=== PATIENT | female | born 1980 | race Caucasian/White ===

== ENCOUNTER 2021-01-05 14:28 | Emergency (ER) | payer OTHER, SELFPAY ==
[2021-01-05 15:20] VITALS: BP 141/91; PULSE 78; RESP 18; TEMP 36.6; O2SAT 98; BMI 20.7
--- NOTE | 2021-01-05 16:05 | ED_ITS ---
HPI - Ear Problem General Chief complaint: Ear Problems Stated complaint: ear infection Time Seen by Provider: 01/05/21 15:55 Source: patient Mode of arrival: ambulatory Limitations: no limitations History of Present Illness MD Complaint: ear pain, ear discharge and decreased hearing Location: bilateral Duration: constant Severity: severe Relieving factors: nothing Exacerbating factors: palpation Discharge from ear: yes - clear Associated symptoms ear: decreased hearing, external ear tenderness, ear swelling and neck pain Treatment prior to arrival: eardrops (Currently on polymyxin ear drops and no symptomatic relief for the past 4 days) Related Data Previous Rx's Medication Instructions Recorded acetaminophen 300 mg-codeine 30 mg 1 tab PO Q8H PRN #14 tab 01/05/21 tablet amoxicillin 875 mg-potassium 1 tab PO BID 10 Days #20 tab 01/05/21 clavulanate 125 mg tablet (Augmentin) ciprofloxacin 0.3 %-dexamethasone 4 drp OTIC (EARS) BID 7 Days ml 01/05/21 0.1 % ear drops,suspension (Ciprodex) Allergies Allergy/AdvReac Type Severity Reaction Status Date / Time clarithromycin [From Biaxin] Allergy Mild UNKNOWN Verified 01/05/21 15:24 Review of Systems Review of Systems: Constitutional : No Weight loss, No Fever, No Chills, No Night Sweats, No Fatigue, No Malaise ENT/Mouth : Positive bilateral ear pain with decreased hearing and discharge, No Nasal Congestion, No Sinus Pain, No Hoarseness, No sore throat, No Rhinorrhea, No Swallowing Difficulty Eyes: No Eye Pain, No Swelling, No Redness, No Foreign Body, No Discharge, No Vision Changes Cardiovascular : No Chest Pain, No SOB, No Dyspnea on Exertion, No Orthopnea, No Edema, No Palpitations Respiratory : No Cough, No Sputum, No Wheezing, No Smoke Exposure, No Dyspnea Gastrointestinal : No Nausea, No Vomiting, No Diarrhea, No Constipation, No abdominal Pain, No Hematochezia, No Melena Genitourinary : no irregular bleeding, No Dysuria, No Urinary Frequency, No Hematuria, No Urinary Incontinence, No Urgency, No Flank Pain, No Urinary Flow Changes, No Hesitancy Musculoskeletal : No joint pain, No Myalgias, No Joint Swelling Skin : No Skin Lesions, No rash Neuro : No Weakness, No Numbness, No Paresthesias, No Loss of Consciousness, No Dizziness, No Headache Psych : No Anxiety/Panic, No Depression, No SI/HI/AH/VH, No Social Issues, Heme/Lymph: No Bruising, No Bleeding,No Lymphadenopathy Endocrine : No Polyuria, No Polydipsia, No Temperature Intolerance Yes all other systems are reviewed and are negative [facility] Past Medical History Attestation statement: The following information was validated with the patient. Medical History No known health problems Social History Social History Advance Directives: No Advance Directives Information Provided: Yes Physical Exam Vital Signs: Vital Signs: Last Vital Signs Temp 97.9 F 01/05/21 15:20 Pulse 78 01/05/21 15:20 Resp 18 01/05/21 15:20 BP 141/91 H 01/05/21 15:20 Pulse Ox 98 01/05/21 15:20 Body Mass Index 20.7 vital signs have been reviewed as normal and appeared to be correct. Blood pressure normal. Heart rate normal. Respiration rate normal. Temperature normal. Oxygen saturation normal. Appearance: Alert. Oriented X3. No acute distress. Head: Normal external exam. Normocephalic. Atraumatic. Eyes: PERRLA. EOMI. Conjunctiva and sclera normal. Eyelids normal. ENT: To left ear canal patient has moderate tender to palpation to the tragus/pinna and edematous to the external ear canal unable to visualize the tympanic membrane. Right external ear canal is open. No signs of infection. Right TM's Normal. Pharynx normal. Uvula midline. Moist mucous membranes. Neck: Normal inspection. Neck supple. FROM. No adenopathy. Thyroid Normal. No meningeal signs. No neck mass noted. CVS: Normal heart rate and rhythm. Abdomen: Soft and nontender. Bowel sounds normal in all 4 quadrants. No distention noted. No organomegaly noted. No visible injury noted. Back: Full range of motion noted. No rashes/lesion/induration/fluctuance or signs of infection noted. Skin: Skin warm and dry. Normal skin color. Normal skin turgor. No rashes/lesions/lacerations noted. Extremities: Extremities exhibit normal range of motion. Extremities nontender. Neuro: Oriented X 3. No motor deficit. No sensory deficit. Reflexes normal. Normal steady gait. No focal neuro deficits noted. Vascular: + radial pulses Normal cap refill. No cyanosis noted to upper extremity nails Course Course Course Narrative: 40-year-old female presenting to the ED with complaints of bilateral ear pain with decreased hearing and discharge worse on the left than the right has currently been on polymyxin antibiotic ear drops for the past 4 days although she feels like the drops are not actually getting into the left ear although they are actually getting into the right ear. She denies any other symptoms complaints or concerns. On exam she is noted to have bilateral otitis externa an eye unable to see the tympanic membrane to the left ear there for a ear wick was placed and drops were placed will DC home with antibiotics and symptomatic treatment instructions return if any new or worsening symptoms to follow up with Dr. Bauman ear nose and throat doctor. Patient understands agrees with this plan. MDM - Ear Medical Records Attestation: I reviewed the patient's medical records. Discharge Plan Discharge Clinical Impression: Otitis externa, Otitis media Patient Disposition: Home, Self-Care Instructions: Otitis Externa (ED), How to Use Ear Drops (ED), Ear Infection (ED) Prescriptions: New acetaminophen-codeine 300-30 mg tablet 1 tab PO Q8H PRN (Reason: pain) Qty: 14 RF: 0 amoxicillin-pot clavulanate [Augmentin] 875-125 mg tablet 1 tab PO BID 10 Days Qty: 20 RF: 0 ciprofloxacin-dexamethasone [Ciprodex] 0.3-0.1 % drops,suspension 4 drp otic (ears) BID 7 Days RF: 0 Referrals: Chase Bauman [Physician] - 2 days (Call to make a follow-up appointment within a week) Stand Alone Forms: Work/School Release Print Language: Malay
== END 2021-01-05 16:18 | disposition home or self-care (01) ==
PROVIDERS: Emergency Provider Emergency Medicine
DX: H60.93 Unspecified otitis externa, bilateral (principal); H66.93 Otitis media, unspecified, bilateral; Z79.899 Other long term (current) drug therapy
CPT/HCPCS: 99283; 99284

== ENCOUNTER 2023-07-20 11:47 | Emergency (ER) | payer OTHER, SELFPAY ==
--- NOTE | 2023-07-20 | ECG_ITS ---
Test Reason : CP Blood Pressure : / mmHG Vent. Rate : 078 BPM Atrial Rate : 078 BPM P-R Int : 128 ms QRS Dur : 072 ms QT Int : 380 ms P-R-T Axes : 060 049 031 degrees QTc Int : 433 ms Normal sinus rhythm Possible Left atrial enlargement Borderline ECG No previous ECGs available Referred By: Generic ED Physician Electronically Signed By:Zach Mejia
--- NOTE | ~2023-07-20 | CT_ITS ---
EXAMINATION: CT ANGIOGRAM CHEST CLINICAL INFORMATION: Chest pain radiating to back COMPARISON: Previous chest x-ray March 2011 TECHNIQUE: Multiple axial images were obtained through the chest after the administration of 70 mL of Omnipaque 350 intravenous contrast. Extensive vascular post-processing including two-dimensional and three-dimensional reformatted images were created and reviewed on an independent workstation. This CT examination was performed using dose optimization techniques as appropriate, variously including the following: *Automated exposure control *Adjustment of mA and/or kV according to patient size (this includes techniques or standardized protocols for targeted exams where dose is matched to indication/reason for exam; i.e. extremities or head) *Use of iterative reconstruction technique DLP: 227 mGy-cm FINDINGS: Thoracic aorta is normal in caliber. No aneurysm or dissection. Great vessel origins are patent. Normal heart size. No pericardial effusion. No pulmonary embolism. No lymphadenopathy. Lungs are clear. No pleural effusion pleural thickening or pneumothorax. Bilateral breast implants. Low attenuation in the body of the pancreas. This may represent unopacified splenic vein. Images through the upper abdomen are otherwise unremarkable CT/CT angio chest aorta IMPRESSION: Normal caliber thoracic aorta. No evidence of aneurysm or dissection. Fleischner guidelines were followed.
[2023-07-20 12:02] LABS: MANUAL DIFF FLAG NO
[2023-07-20 12:04] LABS: Basophils Absolute Auto 0.1 X10*3/uL (0.0-0.2); Basophils Percent Auto 1.7 % (0-2); Eosinophils Absolute Auto 0.1 X10*3/uL (0.0-0.4); Eosinophils Percent Auto 2.5 % (0-4); Hematocrit 43.5 % (37.0-47.0); Imm Gran Abs Auto 0.01 X10*3/uL (0.00-0.03); Imm Gran Pct Auto 0.2 % (0.0-0.4); Lymphocytes Absolute Auto 1.2 X10*3/uL (1.2-4.9); Lymphocytes Percent Auto 23.4 % (20-40); Mean Corpuscular HGB Conc 34.5 g/dl (31.0-35.0); Mean Corpuscular Hemoglobin 30.5 pg (27.0-33.0); Mean Corpuscular Volume 88.4 fL (80.0-98.0); Mean Platelet Volume 10.8 fL (9.4-12.3); Monocytes Absolute Auto 0.4 X10*3/uL (0.1-1.2); Monocytes Percent Auto 7.8 % (2-11); Neutrophils Absolute Auto 3.4 x10*3/uL (2.0-8.3); Neutrophils Percent Auto 64.4 % (45-73); Platelet Count 279 X10*3/uL (160-400); Red Blood Count 4.92 X10*6/uL (4.20-5.50); Red Cell Distribution Width 12.8 % (11.0-16.0); White Blood Count 5.3 X10*3/uL (4.8-10.8)
--- NOTE | 2023-07-20 12:25 | ED.GENADULT ---
HPI - General Adult General Chief complaint: Chest Pain Stated complaint: Chest Pain Time Seen by Provider: 07/20/23 12:40 Source: patient and old records reviewed Mode of arrival: ambulatory Limitations: no limitations History of Present Illness HPI narrative: 43 yo female no sig PMH here with c/o chest pain that is going to her back now with dizziness it has been increasing. No prior CAD no issues with heart or vessels. No travel, URI, vaccines, on OCPs. She denies any recent trauma to the chest. MD complaint: chest pain Onset (ago): day(s) (5) Location: chest Radiation: back Severity: moderate Quality: stabbing and aching Pain Consistency: intermittent Relieving factors: none Exacerbating factors: none Associated symptoms: weakness and other (feels lightheaded) Treatments prior to arrival: none Related Data Previous Rx's ?Medication ?Instructions ?Recorded acetaminophen 300 mg-codeine 30 mg 1 tab PO Q8H PRN pain #14 tabs 01/05/21 tablet amoxicillin 875 mg-potassium 1 tab PO BID 10 days #20 tabs 01/05/21 clavulanate 125 mg tablet (Augmentin) ciprofloxacin 0.3 %-dexamethasone 4 drp otic (ears) BID 7 days 01/05/21 0.1 % ear drops,suspension (Ciprodex) Allergies Allergy/AdvReac Type Severity Reaction Status Date / Time clarithromycin [From Biaxin] Allergy Mild UNKNOWN Verified 07/20/23 12:28 Review of Systems Review of Systems: Constitutional : No Weight loss, No Fever, No Chills ENT/Mouth : No sore throat, No Rhinorrhea Eyes: No Eye Pain, No Swelling Cardiovascular : pos Chest Pain, no SOB, no Dyspnea on Exertion, No Orthopnea, No Edema, No Palpitations Respiratory : No Cough, No Sputum Gastrointestinal : no Nausea, No Vomiting, No Diarrhea, No abdominal Pain, No Hematochezia, No Melena Genitourinary : No Dysuria, No Urinary Frequency Musculoskeletal : No joint pain, No Myalgias, No Joint Swelling Skin : No Skin Lesions, No rash Neuro : No Weakness, No Numbness, pos Dizziness, No Headache Psych : No Anxiety/Panic, No Depression All other systems reviewed and are negative PMFSH Past Medical History Medical History No known health problems Social History Social History (System 01/07/23 @ 12:55 by Sherry Khanna) Advance Directives: No Advance Directives Information Provided: Yes Do you have a plan to hurt others: No Plan Physical Exam ED Vital Signs: Vital Signs - 24 hr 07/20/23 12:26 Temperature 98 F Pulse Rate 89 Respiratory Rate 19 Blood Pressure 134/91 H Pulse Oximetry 98 Oxygen Delivery Method Room Air BMI result Body Mass Index 21.5 Appearance: Alert. Oriented X3. No acute distress. anxious Eyes: Pupils equal, round and reactive to light. ENT: Pharynx normal. Neck: Normal inspection. Neck supple. CVS: Normal heart rate and rhythm. decreased pulses to R foot both DP/PT Respiratory: No respiratory distress. Breath sounds normal. Abdomen: Soft and nontender. Skin: Skin warm and dry. Normal skin color. Normal skin turgor. Extremities: No lower extremity edema. No calf ttp Neuro: Oriented X 3. No motor deficit. No sensory deficit. Course Course Course Narrative: This is an RME performed by Sj Mora CNP: Additional HPI, ROS, PE not included below will be deferred to primary provider. Patient is a 43-year-old female who presents emergency department for evaluation of intermittent chest pain, described as pressure and tightness, shortness of breath, difficulty breathing over past week. Episodes typically last approximately 1 hour, however has been present since awaking this morning approximately 4 hours ago and felt worse today. History of DVT/PE/ malignancy, recent lower extremity swelling pain or redness, no OCP. Plan: Labs, EKG Medications Administered Discontinued Medications Generic Name Dose Route Start Last Admin Trade Name Kelly PRN Reason Stop Dose Admin Sodium Chloride 1,000 mls @ 999 mls/hr 07/20/23 13:07 07/20/23 14:43 Ns IV 07/20/23 14:07 Infused .Q1H1M ONE Infusion Iohexol 100 ml 07/20/23 13:28 07/20/23 13:28 Iohexol 350 Mg/Ml 100 Ml Infus..Btl IV 07/20/23 13:29 70 ml ONCE ONE Administration Medical Decision Making Medical Decision Making MDM Narrative: 43 yo female no sig PMH here with atypical on and off chest pain for 5 days but now with chest pain to the back she is anxious and on exam I do have different pulses exam R leg from L leg at this no risk factors for dissection and no fam hx but given presentation I am ordered CTA of the chest, troponin x 1 and EKG. Differential Diagnosis Differential Diagnoses: The differential diagnosis associated with the presentation includes atypical chest pain, dehydration, dissection no risk factors other than dad at age 75 with ACS Admission/Observation Consideration of admission/observation: Escalation of care including admission/observation considered normal EKF, no PE, dissection trop negative Lab Data [facility] Lab Attestation statement: I reviewed the patient's lab results. 07/20/23 11:57 07/20/23 11:57 Labs: Lab Results 07/20/23 Range/Units 11:57 WBC 5.3 (4.8-10.8) X10*3/uL RBC 4.92 (4.20-5.50) X10*6/uL Hgb 15.0 (12.0-16.0) g/dl Hct 43.5 (37.0-47.0) % MCV 88.4 (80.0-98.0) fL MCH 30.5 (27.0-33.0) pg MCHC 34.5 (31.0-35.0) g/dl RDW 12.8 (11.0-16.0) % Plt Count 279 (160-400) X10*3/uL MPV 10.8 (9.4-12.3) fL Immature Gran % (Auto) 0.2 (0.0-0.4) % Neut % (Auto) 64.4 (45-73) % Lymph % (Auto) 23.4 (20-40) % [place] % (Auto) 7.8 (2-11) % Eos % (Auto) 2.5 (0-4) % Baso % (Auto) 1.7 (0-2) % Lymph # (Auto) 1.2 (1.2-4.9) X10*3/uL [place] # (Auto) 0.4 (0.1-1.2) X10*3/uL Eos # (Auto) 0.1 (0.0-0.4) X10*3/uL Baso # (Auto) 0.1 (0.0-0.2) X10*3/uL Abs Immat Gran (auto) 0.01 (0.00-0.03) X10*3/uL Absolute Neuts (auto) 3.4 (2.0-8.3) x10*3/uL Absolute Nucleated RBC 0.000 (0.0-0.012) X10*3/uL Nucleated RBC % (auto) 0.0 (0.0-0.2) /100WBC Sodium 140 (135-145) mmol/L Potassium 3.9 (3.3-5.1) mmol/L Chloride 105 (96-108) mmol/L Carbon Dioxide 23 (22-29) mmol/L Anion Gap 16 (12-20) BUN 12 (9-16) mg/dL Creatinine 0.84 (0.5-1.4) mg/dL Estim Creat Clear Calc 74.5 Estimated GFR > 60 Random Glucose 96 (60-115) mg/dL Calcium 10.1 (8.4-10.2) mg/dL Total Bilirubin 0.7 (0.0-1.0) mg/dL AST 21 (5-31) U/L ALT 19 (0-31) U/L Alkaline Phosphatase 44 (39-117) U/L Troponin I High Sens < 2.7 (<3.5-17.0) ng/L B-Natriuretic Peptide 16 (<100) pg/mL Total Protein 7.2 (6.5-8.0) g/dL Albumin 4.4 (3.5-5.0) g/dL Independent Interpretation I performed an independent interpretation of an: EKG and CT Scan (no PE dissection) Interpretation: Rate: 78 Rhythm: NSR [place]: normal Normal P waves. Normal FELICITA. Normal QRS complex. ST T wave : inverted t wave III, no KATIE qTC: 433 prior studies: no acute ischemia The study has been interpreted contemporaneously by me. . Radiology Impression Discussion of test interpretation with radiology: I have reviewed the radiologist's reading. External Record Review External record reviewed: Inpatient record Discharge Plan Discharge Clinical Impression: Atypical chest pain Patient Disposition: Home, Self-Care Instructions: Chest Pain (ED) Additional Instructions: reassuring EKG, heart markers negative no blood clot or dissection of artery noted on CT scan please follow up with your doctor for outpatient stress test and ECHO I did put cardiology number on chart you can call them Prescriptions: No Action acetaminophen-codeine 300-30 mg tablet 1 tab PO Q8H PRN (Reason: pain) Qty: 14 0RF Rx Instructions: May partially fill upon patient request amoxicillin-pot clavulanate [Augmentin] 875-125 mg tablet 1 tab PO BID 10 Days Qty: 20 0RF ciprofloxacin-dexamethasone [Ciprodex] 0.3-0.1 % drops,suspension 4 drp otic (ears) BID 7 Days 0RF Referrals: Elie Weinberg MD [Physician] - (storeroom supervisor) Print Language: Greek
[2023-07-20 12:26] VITALS: BP 134/91; PULSE 89; RESP 19; TEMP 36.6; O2SAT 98; BMI 21.5
[2023-07-20 12:32] LABS: Alanine Aminotransferase 19 U/L (0-31); Albumin Level 4.4 g/dL (3.5-5.0); Alkaline Phosphatase 44 U/L (39-117); Anion Gap 16 (12-20); Aspartate Amino Transferase 21 U/L (5-31); Bilirubin Total 0.7 mg/dL (0.0-1.0); Blood Urea Nitrogen 12 mg/dL (9-16); Calcium 10.1 mg/dL (8.4-10.2); Carbon Dioxide 23 mmol/L (22-29); Chloride 105 mmol/L (96-108); Creatinine Clr Calc Pharmacy 74.5; Estimated Glomerular Filt Rate > 60; Glucose Random 96 mg/dL (60-115); Potassium 3.9 mmol/L (3.3-5.1); Sodium 140 mmol/L (135-145); Total Protein 7.2 g/dL (6.5-8.0)
[2023-07-20 12:35] LABS: B Type Natriuretic Peptide 16 pg/mL (<100)
[2023-07-20 12:37] LABS: Troponin-I High Sensitivity < 2.7 ng/L (<3.5-17.0)
[2023-07-20] MEDS: iohexoL 350 MG/ML 100 ML INFUS..BTL IV (13:28)
[2023-07-20] MEDS: 0.9 % Sodium Chloride 1,000 ML 999 ML IV (13:42)
[2023-07-20 15:09] VITALS: BP 125/86; PULSE 76; RESP 16; TEMP 36.8; O2SAT 98
[2023-07-20 15:36] VITALS: BP 126/84; PULSE 78; RESP 16; TEMP 36.9; O2SAT 99
== END 2023-07-20 15:38 | disposition home or self-care (01) ==
PROVIDERS: Emergency Provider Emergency Medicine
DX: R07.89 Other chest pain (principal)
CPT/HCPCS: 36415; 71275; 80053; 83880; 84484; 85025; 93005; 96360; 99284; 99285; Q9967

== ENCOUNTER → 2023-07-20 11:50 | Outpatient (BNV) | payer OTHER, SELFPAY | PROVIDERS: Emergency Provider Emergency Medicine; Visit Provider Internal Medicine Cardiovascular Disease | DX: R07.9 Chest pain, unspecified (principal) | CPT/HCPCS: 93010 ==

== ENCOUNTER 2023-08-28 13:44 | Outpatient (AMB) | payer OTHER, SELFPAY ==
[2023-08-28 13:51] VITALS: BP 122/64; PULSE 77; BMI 20.4
--- NOTE | 2023-08-28 13:51 | A.OFFVIS_ITS ---
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 She had presents to the emergency department here at [facility] [place] for chest pains on 07/20/23. She had about 2 weeks of chest pains, shortness of breath, and swelling. She and her family are concerned due to having a large family history of CAD. She reports she still having intermittent chest pains and shortness of breath. Stabbing like in quality. She runs 2 miles a day and weight lifts without difficulty. [facility] Medical History (Updated 08/29/23 @ 08:30 by Richa Prater NP) Shortness of breath Palpitation No known health problems Surgical History H/O: hysterectomy Family History Father S/P CABG x 4 Myocardial infarct PVCs (premature ventricular contractions) Maternal Grandmother CAD (coronary artery disease) Myocardial infarct Paternal Grandmother Myocardial infarct Maternal Uncle Myocardial infarct Mother Atrial fibrillation Review of Systems Const Denies weakness ENT Denies dizziness Card Denies chest pain, Denies chest pain with activity, Denies syncope, Denies rapid heart rate, Denies pedal edema, Denies edema, Denies leg edema, Denies lightheadedness, Denies palpitations, Denies dyspnea, Denies dyspnea on exertion and Denies orthopnea Resp Denies cough, Denies dyspnea and Denies dyspnea on exertion GI Denies hematochezia and Denies change in stool character Musc Denies abnormal gait, Denies muscle cramps, Denies muscle weakness, Denies numbness, Denies radiating pain into limb and Denies tingling Neuro Denies abnormal gait, Denies dizziness, Denies syncope, Denies numbness, Denies tingling and Denies weakness Endo Denies palpitations Physical Exam Vital Signs: Last Vital Signs Pulse 77 08/28/23 13:51 BP 122/64 08/28/23 13:51 BMI result Body Mass Index 20.4 Const General: healthy appearing and no acute distress Orientation/consciousness: patient oriented x3 HEENT Head: Yes normal to inspection Eyes General: appearance normal, both eyes and all related structures Neck Neck: Yes normal visual inspection Chest Chest palpation & inspection: normal inspection of the chest Resp Effort & Inspection: normal respiratory effort Auscultation: clear to auscultation bilaterally Cardio Jugular venous distension: no JVD Palpation: normal PMI Rate: regular rate Rhythm: regular rhythm Heart sounds: S1 normal heart sound present, S2 normal heart sound present, no click, no gallops, no murmurs and no rubs GI Inspection: Yes normal to inspection Palpation (GI): Soft to palpation Skin General skin exam: no rashes or lesions noted Neuro General: patient oriented x3 Extrem General: Yes normal to inspection Psych Appearance: grossly normal Assessment & Plan Assessment & Plan (1) Atypical chest pain: Code(s): R07.89 - Other chest pain Category: Medical (2) Palpitation: Code(s): R00.2 - Palpitations Category: Medical (3) Shortness of breath: Code(s): R06.02 - Shortness of breath Category: Medical Plan Will obtain stress echo, echocardiogram, and holter to assess for ischemia, wall motion abnormality, and arrhythmias. Patient agreed to plan of care. ED care if needed Orders: Orders CA echo transthoracic complete Today R00.2 - Palpitations, R06.02 - Shortness of breath, R07.89 - Other chest pain CA echo stress exercise w con Today R00.2 - Palpitations, R06.02 - Shortness of breath, R07.89 - Other chest pain ECG 3 day holter monitor Today R00.2 - Palpitations, R06.02 - Shortness of breath, R07.89 - Other chest pain Medications: Discontinued amoxicillin-pot clavulanate 875-125 mg (Augmentin) Discontinued Reason: Patient no longer taking 1 tab PO BID 10 days 20 tabs 0RF acetaminophen-codeine 300-30 mg May partially fill upon patient request Discontinued Reason: Patient no longer taking 1 tab PO Q8H PRN 14 tabs 0RF pain Coding Level of Care Code New Pt Level 3 (02029) Diagnoses Atypical chest pain R07.89 Palpitation R00.2 Shortness of breath R06.02
== END 2023-08-28 14:21 | disposition home or self-care (01) ==
PROVIDERS: Visit Provider Nurse Practitioner
DX: R07.89 Other chest pain (principal); R00.2 Palpitations; R06.02 Shortness of breath
CPT/HCPCS: 99203

== ENCOUNTER → 2023-08-28 13:44 | Outpatient (BNVA) | payer OTHER, SELFPAY | PROVIDERS: Visit Provider Nurse Practitioner | DX: R07.89 Other chest pain (principal); R00.2 Palpitations; R06.02 Shortness of breath ==

== ENCOUNTER → 2023-10-20 09:55 | Outpatient (REF) | payer OTHER, SELFPAY ==
--- NOTE | 2023-10-20 09:59 | HM_ITS ---
Conclusion: 1. Patient was monitored for total period of 3 days 2. Baseline was normal sinus rhythm with average heart of 83 beats per minute 3. No significant pauses noted 4. Rare PACs and occasional PVCs noted with 1 3 beat leno of PVCs at 127 beats per minute 5. No patient reported events MTDD
--- NOTE | 2023-10-20 09:59 | CA_ITS ---
Transthoracic Echocardiogram Patient (Last, First, Middle): Damaris Livingston, Gender: Female Date of : 1980 Age: 43 Procedure Date: 10/20/2023 Procedure Type: Transthoracic Echocardiogram Location: OP Height: 162.56 cm Weight: 54.43 kg BSA: 1.57 m2 Heart Rate: 90 bpm BP: 122 / 80 mmHg Patternmaker Hand: LEVY Elena MD: Richa Prater MATH INTERVENTIONIST Metals Sales Representative: Trevor Palomino MD Symptoms: R07.89 - Other chest pain Study Quality: Adequate ECG Rhythm: Sinus Conclusions: - Essentially normal study Findings Left Ventricle Normal left ventricular size, thickness, and systolic function. The visually estimated ejection fraction is between 55-60%. Spectral Doppler is indicative of a normal filling pattern. Right Ventricle Normal right ventricular cavity size and systolic function. Atria Both atria are normal in size. There is no evidence of interatrial shunt. Aortic Valve Normal aortic valve structure and function. There is no aortic valve stenosis. There is no aortic valve regurgitation. Mitral Valve Normal mitral valve structure and function. There is trace mitral valve regurgitation. There is no mitral valve stenosis. Pulmonic Valve The pulmonic valve is likely normal. There is trace pulmonic valve regurgitation. Tricuspid Valve Normal tricuspid valve structure. Tricuspid regurgitation envelope is inadequate for calculation of right ventricular systolic pressure. Normal right atrial pressure. Great Vessels All visible segments of the aorta are normal in size. The pulmonary artery was not well visualized. Venous The inferior vena cava is normal in size and collapses greater than 50% with inspiration. Pericardium/Pleural There is no evidence of pericardial effusion. Prior Study Comparison No prior study available for comparison. Measurements 2D Linear Measurements IVSd: 0.94 0.6-0.9/0.6-1.0 cm LVIDd: 4.41 3.9-5.3/4.2-5.9 cm LVIDd Index: 2.81 2.4-3.2/2.2-3.1 cm/m2 LVIDs: 3.21 2.0-3.6 cm LVPWd: 0.75 0.7-1.1 cm LA Diam: 2.80 2.7-3.8/3.0-4.0 cm LAIDs Index: 1.78 1.5-2.3 cm/m2 LV Mass: 145.94 67-162/88-224 g LV Mass Index: 92.95 43-95/49-115 g/m2 LVOT Diam: 1.90 3.0+(-)1.3 cm 2D Systolic Function EF 4C: 61.00 >55% EF 2C: 56.00 >55% EF BiP: 59.20 >55% Mitral Valve MV Pk E: 0.57 MV PK A: 0.61 MV Decel Time: 271.00 E/A: 0.90 E'Lateral: 14.60 E'Medial: 9.68 E/E' Med: 5.80 E/E' Lat: 3.90 PHT: 79.00 MVA PHT: 2.78 Decel [place]: 2.09 Aortic Valve AoV Pk Arvin: 1.19 AoV Mn Arvin: 0.85 AoV VTI: 0.21 AoV Pk Grad: 6.00 Aov Mn Grad: 3.00 SAÚL Cont.VTI: 1.95 LVOT LVOT Pk Arvin: 0.80 LVOT Mn Arvin: 0.60 LVOT VTI: 0.14 LVOT Pk Grad: 3.00 LVOT Mn Grad: 2.00 LVOT Diam: 1.90 LVOT Area: 2.84 Diastolic Function MV Pk E: 0.57 MV Pk A: 0.61 E/A: 0.90 E'Medial: 9.68 E/E' Med: 5.80 E' Laterial: 14.60 E/E' Lat: 3.90 Right Ventricle TAPSE (mm): 14.60 TVS' Arvin: 9.46 Tricuspid Valve RA Press: 3.00 Great Vessels Aorta Sinus of Valsalva: 3.00 2.0-3.5 cm Ao Asc: 3.00 2.1-3.4 cm Pulmonary Valve PV Pk Arvin: 0.86 Peak PV Grad: 3.00 Updated in Other Vendor System with Status of Final Trevor Palomino MD electronically signed on 10/20/2023 1:07:49 PM with status of Final
== END ==
LOC: HO.CARD 09:55
PROVIDERS: Visit Provider Nurse Practitioner
DX: R07.89 Other chest pain (principal); R06.02 Shortness of breath; R00.2 Palpitations
CPT/HCPCS: 93242; 93306

== ENCOUNTER → 2023-10-20 09:59 | Outpatient (BNV) | payer OTHER, SELFPAY | PROVIDERS: Visit Provider Internal Medicine Cardiovascular Disease | DX: I49.3 Ventricular premature depolarization (principal); I49.1 Atrial premature depolarization | CPT/HCPCS: 93244; 93306 ==

== ENCOUNTER → 2023-10-28 10:55 | Outpatient (REF) | payer OTHER, SELFPAY ==
--- NOTE | 2023-10-28 10:58 | CA_ITS ---
Acquisition Time: 2023-10-28 11:02:48 Total Exercise Time: 00:13:44 Test Indications: CP, SOB Medications: SEE H Protocol: PREETHI Max HR: 173 BPM 97% of Pred: 177 BPM Max BP: 138/078 mmHG Max Work Load: 16.6 METS Exercise stress test exercise 13 min 44 sec of Preethi protocol achieving 97% MPHR, with mild SOB, reports chest tightness of breathing, with isolated PVCs and PACs, with normotensive response to exercise, without EKG changes. Echo images obtained by tech at rest and immediately post peak exercise. Definity contrast used. Test reviewed with Dr. Weinberg. Referred By: Richa Prater Overread By: Richa Prater
== END ==
LOC: HO.CARD 10:55
PROVIDERS: Visit Provider Nurse Practitioner
DX: R07.89 Other chest pain (principal); R06.02 Shortness of breath; R00.2 Palpitations
CPT/HCPCS: 93350; Q9957

== ENCOUNTER → 2023-10-28 10:58 | Outpatient (BNV) | payer OTHER, SELFPAY | PROVIDERS: Visit Provider Nurse Practitioner | DX: R06.02 Shortness of breath (principal); R07.9 Chest pain, unspecified; I49.3 Ventricular premature depolarization; I49.1 Atrial premature depolarization | CPT/HCPCS: 93016; 93018; 93350; 93352 ==

== ENCOUNTER 2023-10-31 12:58 | Outpatient (AMB) | payer OTHER, SELFPAY ==
[2023-10-31 13:11] VITALS: BP 122/60; PULSE 77; BMI 20.1
--- NOTE | 2023-10-31 13:11 | MHC.OFFVIS ---
Vital Signs 10/31/23 13:11 Height 5 ft 4 in Weight 116 lb 13.52 oz BMI 20.1 BP 122/60 Blood Pressure Location Lt brachial Position Sitting Pulse 77 Pulse Source Pulse Oximeter Intake Visit Reasons: f/u after testing Allergies clarithromycin [From Biaxin] Allergy (Mild, Verified 07/20/23 12:28) UNKNOWN HPI Comments Details: 43-year-old female presents today for a follow-up. She had presented to the emergency department here at [facility] for chest pains on 07/20/23. She had about 2 weeks of chest pains, shortness of breath, and swelling. She and her family are concerned due to having a large family history of CAD. She reports she has been doing well without any concerning symptoms. She runs 2 miles a day and weight lifts without difficulty. She reports she has been under a lot of stress at home. [facility] Medical History Shortness of breath Palpitation No known health problems Surgical History H/O: hysterectomy Family History Father S/P CABG x 4 Myocardial infarct PVCs (premature ventricular contractions) Maternal Grandmother CAD (coronary artery disease) Myocardial infarct Paternal Grandmother Myocardial infarct Maternal Uncle Myocardial infarct Mother Atrial fibrillation Review of Systems Const Denies weakness ENT Denies dizziness Card Denies chest pain, Denies chest pain with activity, Denies syncope, Denies rapid heart rate, Denies pedal edema, Denies edema, Denies leg edema, Denies lightheadedness, Denies palpitations, Denies dyspnea, Denies dyspnea on exertion and Denies orthopnea Resp Denies cough, Denies dyspnea and Denies dyspnea on exertion GI Denies hematochezia and Denies change in stool character Musc Denies abnormal gait, Denies muscle cramps, Denies muscle weakness, Denies numbness, Denies radiating pain into limb and Denies tingling Neuro Denies abnormal gait, Denies dizziness, Denies syncope, Denies numbness, Denies tingling and Denies weakness Endo Denies palpitations Physical Exam Vital Signs: Last Vital Signs Pulse 77 10/31/23 13:11 BP 122/60 10/31/23 13:11 BMI result Body Mass Index 20.1 Const General: healthy appearing and no acute distress Orientation/consciousness: patient oriented x3 HEENT Head: Yes normal to inspection Eyes General: appearance normal, both eyes and all related structures Neck Neck: Yes normal visual inspection Chest Chest palpation & inspection: normal inspection of the chest Resp Effort & Inspection: normal respiratory effort Auscultation: clear to auscultation bilaterally Cardio Jugular venous distension: no JVD Palpation: normal PMI Rate: regular rate Rhythm: regular rhythm Heart sounds: S1 normal heart sound present, S2 normal heart sound present, no click, no gallops, no murmurs and no rubs GI Inspection: Yes normal to inspection Palpation (GI): Soft to palpation Skin General skin exam: no rashes or lesions noted Neuro General: patient oriented x3 Extrem General: Yes normal to inspection Psych Appearance: grossly normal Results Reviewed Results Reviewed: Holter Conclusion: 1. Patient was monitored for total period of 3 days 2. Baseline was normal sinus rhythm with average heart of 83 beats per minute 3. No significant pauses noted 4. Rare PACs and occasional PVCs noted with 1 3 beat leno of PVCs at 127 beats per minute 5. No patient reported events Protocol: ALFRED Max HR: 173 BPM 97% of Pred: 177 BPM Max BP: 138/078 mmHG Max Work Load: 16.6 METS Exercise stress test exercise 13 min 44 sec of Alfred protocol achieving 97% MPHR, with mild SOB, reports chest tightness of breathing, with isolated PVCs and PACs, with normotensive response to exercise, without EKG changes. Echo images obtained by tech at rest and immediately post peak exercise. Definity contrast used. Test reviewed with Dr. Weinberg. Exercise echocardiogram reviewed. At rest, there is normal LVEF and wall motion. With peak exercise, there is approrpriate augmentation of wall thickening and contractility. There is normal decrease in end-systolic volumes. There is no evidence of exercise induced diastolic dysfunction or pulmonary hypertension. Overall, normal study. Assessment & Plan Assessment & Plan (1) Atypical chest pain: Code(s): R07.89 - Other chest pain Category: Medical (2) Shortness of breath: Code(s): R06.02 - Shortness of breath Category: Medical (3) Palpitation: Code(s): R00.2 - Palpitations Category: Medical Plan Atypical chest pains in young female who exercises daily. Family history of coronary artery disease. During stress echo she had exercised 13 minutes and 44 seconds of Alfred protocol achieving 97% of target heart rate reported chest tightness with her breathing had isolated PACs and PVCs without EKG changes. Echocardiogram images revealed appropriate augmentation of wall thickening and contractility. No evidence of exercise-induced diastolic dysfunction or pulmonary hypertension noted. Overall, normal study. Holter study showed rare PACs and occasional PVCs. Echocardiogram showed essentially a normal study. Reassurance given. Stress reduction and reduction of stimulants discussed. Avoidance of stimulants and heart healthy diet encouraged. Emergency care if needed. Can follow with up with us as needed. Coding Level of Care Code Est Pt Level 4 (67644) Diagnoses Atypical chest pain R07.89 Shortness of breath R06.02 Palpitation R00.2
== END 2023-10-31 13:26 | disposition home or self-care (01) ==
PROVIDERS: Visit Provider Nurse Practitioner
DX: R07.89 Other chest pain (principal); R06.02 Shortness of breath; R00.2 Palpitations
CPT/HCPCS: 99214

== ENCOUNTER → 2023-10-31 12:58 | Outpatient (BNVA) | payer OTHER, SELFPAY | PROVIDERS: Visit Provider Nurse Practitioner | DX: R07.89 Other chest pain (principal); R06.02 Shortness of breath; R00.2 Palpitations ==